=== PATIENT | male | born 1975 | race Caucasian/White ===

== ENCOUNTER 2019-12-08 11:02 | Outpatient (REF) | payer OTHER, SELFPAY | END 2019-12-08 11:03 | disposition home or self-care (01) | LOC: HO.MRI 11:02 | PROVIDERS: PCP Nurse Practitioner Adult Health; Visit Provider Anesthesiology | DX: M48.50XA Collapsed vertebra, not elsewhere classified, site unspecified, initial encounter for fracture (principal) ==